=== PATIENT | female | born 1980 | race African-American/Black ===

== ENCOUNTER 2021-07-01 07:07 | Inpatient (IN) ==
[2021-07-01] MEDS ORDERED: LABETALOL 20 MG/4 ML SYRINGE IV PRN (07:47)
[2021-07-01] MEDS ORDERED: LABETALOL 100 MG/20 ML VIAL IV PRN ×2 (07:47)
[2021-07-01] MEDS ORDERED: MAGNESIUM SULF RIDER 4 GM/100 ML PREMIX IV ONE (07:47)
[2021-07-01] MEDS ORDERED: miSOPROStoL 200 MCG TABLET RECTAL PRN (07:48)
[2021-07-01] MEDS ORDERED: METHYLERGONOVINE 0.2 MG/1 ML AMP IM PRN (07:48)
[2021-07-01] MEDS ORDERED: ONDANSETRON 4 MG/2 ML VIAL IV PRN ×2 (07:48→20:50)
[2021-07-01] MEDS ORDERED: CARBOPROST TROMETHAMINE 250 MCG/ML AMP IM PRN (07:48)
[2021-07-01] MEDS ORDERED: OXYTOCIN/LR 20 UNIT/1,000 ML BAG IV ONE ×2 (07:48→20:50)
[2021-07-01] MEDS ORDERED: TRANEXAMIC ACID 1,000 MG in SODIUM CHLORIDE 0.9% 100 ML IV PRN (07:48)
[2021-07-01] MEDS ORDERED: MAGNESIUM SULF DRIP 40 GM/1,000 ML ML IV SCH (08:00)
[2021-07-01 08:09] LABS: Basophils % 0.4 % (0.0-0.8); Eosinophils % 0.6 % (0.00-10.9); Hematocrit 29.6 VOL% (35.7-47.0); Immature Granulocytes % 0.6 %; Immature Granulocytes Absolute 0.04 #; Lymphocytes # 1.3 10*3/uL (1.4-4.0); Lymphocytes % 19.9 % (21.3-54.2); Mean Corpuscular HGB Conc 30.4 GM/DL (32-36); Mean Corpuscular Volume 75.9 FL (87-102); Monocytes # 0.4 10*3/uL (0.11-0.8); Monocytes % 5.8 % (1.7-12.7); Neutrophils % 72.7 % (38.7-73.9); Platelet Count 156 T/CUMM (130-400); Red Cell Distribution Width 15.9 % (9.3-17.3); White Blood Count 6.8 T/CUMM (4-12)
[2021-07-01 08:14] LABS: Bilirubin,Urine Negative (Negative); Blood, Urine Trace mg/dL (Negative); Glucose,Urine (UA) Negative (Negative); Ketones,Urine Negative (Negative); Mucus,Urine Occasional /LPF (Occasional); Nitrite,Urine Negative (Negative); Protein,Urine Negative (Negative); RBC,Urine 1 /HPF (0-4); Squamous Epithelial Cell,Urine Occasional /HPF (0-10); Urine Appearance Clear (Clear); Urine Color Yellow (Yellow); Urine Specific Gravity 1.015 (1.001-1.035); Urine Urobilinogen 0.2 eU/dL (<2.0)
[2021-07-01] MEDS: LACTATED RINGERS 1,000 ML IV SCH ×2 (08:18→18:56)
[2021-07-01 08:21] LABS: INR 0.9; PT Patient Result 9.6 SECS (10.5-12.0); Partial Thromboplastin Time 25.6 SECS (23.8-32.1)
[2021-07-01 08:24] LABS: Barbiturates Screen,Urine Negative (Negative); Benzodiazepines Screen,Urine Negative (Negative); Cannabinoid Screen,Urine Negative (Negative); Opiate Screen,Urine Negative (Negative); Phencyclidine Screen,Urine Negative (Negative)
[2021-07-01 08:27] LABS: Protein/Creatinine Ratio,Urine 0.4 RATIO
[2021-07-01 08:32] LABS: Alanine Aminotransferase 10 U/L (13-56); Albumin 2.4 G/DL (3.4-5.0); Alkaline Phosphatase 152 U/L (45-117); Aspartate Amino Transferase 11 U/L (0-37); Bilirubin,Total < 0.39 MG/DL (0.20-1.00); Blood Urea Nitrogen 6 MG/DL (7-18); Carbon Dioxide 24 MMOL/L (21-32); Chloride 109 MMOL/L (98-107); Estimated Glom Filtration Rate 167 ML/MIN; Glucose 87 MG/DL (74-106); Osmolality,Calculated 269.8 MOS/KG (273-304); Sodium 137 MMOL/L (136-145); Total Protein 6.9 G/DL (6.4-8.2)
[2021-07-01] MEDS ORDERED: BUTORPHANOL 2 MG/ML VIAL ONE (12:06)
[2021-07-01] MEDS ORDERED: BUTORPHANOL 2 MG/ML VIAL IV PRN (12:08)
[2021-07-01] MEDS ORDERED: OXYTOCIN/D5LR 20 UNIT/1,000 ML PREMIX IV SCH (12:30)
[2021-07-01] MEDS ORDERED: AMPICILLIN INJ 2,000 MG in SODIUM CHLORIDE 0.9% 100 ML IV ONE (13:21)
[2021-07-01] MEDS ORDERED: PROMETHAZINE 25 MG/1 ML VIAL IM ONE (13:23)
[2021-07-01] MEDS ORDERED: diphenhydrAMINE 50 MG/1 ML VIAL IV PRN ×2 (13:23)
[2021-07-01] MEDS ORDERED: ePHEDrine 50 MG/ML VIAL IV PRN (13:23)
[2021-07-01] MEDS ORDERED: ONDANSETRON 4 MG/2 ML VIAL IV ONE (13:23)
[2021-07-01] MEDS ORDERED: hydrOXYzine HCL 25 MG/1 ML VIAL IM PRN (13:23)
[2021-07-01] MEDS ORDERED: NALOXONE 0.4 MG/ML VIAL IV PRN (13:23)
[2021-07-01] MEDS ORDERED: CITRIC ACID/SODIUM CITRATE 30 ML UDCUP PO ONE (13:29)
[2021-07-01] MEDS ORDERED: FAMOTIDINE 20 MG/2 ML VIAL IV ONE (13:29)
[2021-07-01] MEDS ORDERED: fentaNYL 2 MCG/ROPIV 0.2% EPID 100 ML EPIDURAL SCH (13:30)
[2021-07-01] MEDS: MEPERIDINE 50 MG/1 ML VIAL IV SCH (16:26)
[2021-07-01] MEDS ORDERED: MEPERIDINE 50 MG/1 ML VIAL IM ONE (17:30)
[2021-07-01] MEDS: AMPICILLIN INJ 1,000 MG in SODIUM CHLORIDE 0.9% 100 ML IV SCH ×2 (17:46→17:49)
[2021-07-01] MEDS ORDERED: ceFAZolin 2,000 MG/50 ML DUPLEX IV ONE (18:30)
[2021-07-01] MEDS ORDERED: propofoL 200 MG/20 ML VIAL IV ONE (18:59)
[2021-07-01] MEDS ORDERED: SUCCINYLCHOLINE 200 MG/10 ML VIAL ONE (18:59)
[2021-07-01] MEDS ORDERED: LIDOCAINE 2% 5 ML VIAL ONE (18:59)
[2021-07-01] MEDS ORDERED: KETOROLAC 30 MG/1 ML VIAL ONE (19:31)
[2021-07-01] MEDS ORDERED: ACETAMINOPHEN INJ 1,000 MG/100 ML VIAL IV ONE (19:31)
[2021-07-01] MEDS ORDERED: MIDAZOLAM 2 MG/2 ML VIAL ONE (19:37)
[2021-07-01] MEDS ORDERED: fentaNYL 100 MCG/2 ML VIAL ONE (19:37)
[2021-07-01] MEDS ORDERED: OXYTOCIN 10 UNIT/ML VIAL ONE (19:41)
[2021-07-01] MEDS ORDERED: ONDANSETRON 4 MG/2 ML VIAL ONE (19:50)
[2021-07-01 20:07] LABS: Cord Arterial Blood HCO3 21.4 MMOL/L
[2021-07-01 20:08] LABS: Cord Venous Blood HCO3 22.4 MMOL/L; Cord Venous Blood PCO2 52.6 MMHG; Cord Venous Blood PO2 51.2
[2021-07-01 20:20] LABS: Mucus,Urine Occasional /LPF (Occasional); RBC,Urine <1 /HPF (0-4)
[2021-07-01 20:21] LABS: Glucose,Urine (UA) Negative (Negative); Ketones,Urine Negative (Negative); Protein,Urine Negative (Negative); Urine Appearance Clear (Clear); Urine Color Yellow (Yellow); Urine Specific Gravity >= 1.030 (1.001-1.035); Urine pH 6.5 (4.5-8.0)
[2021-07-01 20:22] LABS: Bilirubin,Urine Negative (Negative); Blood, Urine Negative (Negative); Nitrite,Urine Negative (Negative); Urine Urobilinogen 0.2 eU/dL (<2.0)
[2021-07-01] MEDS ORDERED: PHENYLEPHRINE 1 MG/10 ML SYRINGE IV ONE (20:44)
[2021-07-01] MEDS ORDERED: SODIUM CHLORIDE 0.9% 1,000 ML IV PRN (20:46)
[2021-07-01] MEDS ORDERED: MAGNESIUM HYDROXIDE SUSP 30 ML UDCUP PO PRN (20:50)
[2021-07-01] MEDS ORDERED: SIMETHICONE CHEW 80 MG TABLET PO PRN (20:50)
[2021-07-01] MEDS ORDERED: ACETAMINOPHEN 325 MG TABLET PO PRN (20:50)
[2021-07-01] MEDS ORDERED: RHO(D) IMMUNE GLOBULIN 300 MCG SYRINGE IM ONE (20:50)
[2021-07-01] MEDS ORDERED: LACTATED RINGERS 1,000 ML IV SCH (21:00)
[2021-07-01 21:13] LABS: Basophils % 0.2 % (0.0-0.8); Hematocrit 22.8 VOL% (35.7-47.0); Immature Granulocytes % 0.6 %; Immature Granulocytes Absolute 0.08 #; Lymphocytes # 0.7 10*3/uL (1.4-4.0); Lymphocytes % 4.9 % (21.3-54.2); Mean Corpuscular HGB Conc 30.7 GM/DL (32-36); Mean Corpuscular Volume 76.5 FL (87-102); Monocytes # 0.6 10*3/uL (0.11-0.8); Monocytes % 4.1 % (1.7-12.7); Neutrophils % 90.2 % (38.7-73.9); Platelet Count 148 T/CUMM (130-400); Red Blood Count 2.98 MC/CUMM (3.8-5.5); Red Cell Distribution Width 15.8 % (9.3-17.3); White Blood Count 13.8 T/CUMM (4-12)
[2021-07-01 21:37] LABS: Lymphocytes 5 % (20-55); Total Cells Counted 100
[2021-07-01 21:38] LABS: Anisocytosis Slight; Hypochromia 1+; Macrocytosis Slight; Microcytosis Slight; Platelet Estimate Adequate
[2021-07-02] MEDS: KETOROLAC 30 MG/1 ML VIAL IV SCH ×2 (02:23→07:50)
[2021-07-02] MEDS: DOCUSATE SODIUM 100 MG CAPSULE PO SCH ×4 (05:08→20:38)
[2021-07-02] MEDS: MEPERIDINE 50 MG/1 ML VIAL IV SCH (05:10)
[2021-07-02 06:15] LABS: Basophils % 0.1 % (0.0-0.8); Hematocrit 23.6 VOL% (35.7-47.0); Hemoglobin 7.5 GM/DL (12.0-16.0); Immature Granulocytes % 0.5 %; Immature Granulocytes Absolute 0.08 #; Lymphocytes % 6.5 % (21.3-54.2); Mean Corpuscular HGB Conc 31.8 GM/DL (32-36); Mean Corpuscular Volume 79.7 FL (87-102); Monocytes # 0.7 10*3/uL (0.11-0.8); Neutrophils % 87.9 % (38.7-73.9); Platelet Count 151 T/CUMM (130-400); Red Blood Count 2.96 MC/CUMM (3.8-5.5); Red Cell Distribution Width 16.6 % (9.3-17.3); White Blood Count 14.8 T/CUMM (4-12)
[2021-07-02 06:33] LABS: Hypochromia 1+; Microcytosis 1+; Ovalocytes Few
[2021-07-02] MEDS: MULTIVITAMIN (PRENATAL) TABLET PO SCH ×2 (07:50→09:52)
[2021-07-02] MEDS: FERROUS SULFATE 325 MG TABLET PO SCH ×2 (07:50→20:38)
[2021-07-02] MEDS: FUROSEMIDE 40 MG/4 ML VIAL IV SCH ×2 (09:31→12:00)
[2021-07-02] MEDS ORDERED: MEPERIDINE 50 MG/1 ML VIAL IV PRN (09:53)
[2021-07-02] MEDS ORDERED: LORazepam 2 MG/1 ML VIAL ONE (10:16)
[2021-07-02] MEDS: LORazepam 2 MG/1 ML VIAL IV PRN (10:18)
[2021-07-02 12:40] LABS: Basophils % 0.2 % (0.0-0.8); Hematocrit 18.6 VOL% (35.7-47.0); Immature Granulocytes % 0.6 %; Immature Granulocytes Absolute 0.08 #; Lymphocytes # 1.1 10*3/uL (1.4-4.0); Lymphocytes % 8.5 % (21.3-54.2); Mean Corpuscular HGB Conc 33.3 GM/DL (32-36); Mean Corpuscular Volume 78.2 FL (87-102); Monocytes # 0.6 10*3/uL (0.11-0.8); Monocytes % 4.7 % (1.7-12.7); Platelet Count 125 T/CUMM (130-400); Red Blood Count 2.38 MC/CUMM (3.8-5.5); Red Cell Distribution Width 16.5 % (9.3-17.3); White Blood Count 13.2 T/CUMM (4-12)
[2021-07-02 12:47] LABS: Hemoglobin 6.2 GM/DL (12.0-16.0)
[2021-07-02 13:02] LABS: Platelet Estimate Decreased
[2021-07-02] MEDS ORDERED: FUROSEMIDE 40 MG/4 ML VIAL IV ONE (13:51)
[2021-07-02] MEDS: IBUPROFEN 800 MG TABLET PO PRN (20:39)
[2021-07-02 21:28] LABS: Hematocrit 23.8 VOL% (35.7-47.0); Hemoglobin 7.8 GM/DL (12.0-16.0)
[2021-07-03] MEDS: LORazepam 2 MG/1 ML VIAL IV PRN (04:18)
[2021-07-03 08:13] LABS: Basophils % 0.2 % (0.0-0.8); Eosinophils % 0.2 % (0.00-10.9); Hemoglobin 6.9 GM/DL (12.0-16.0); Immature Granulocytes % 0.8 %; Lymphocytes # 1.7 10*3/uL (1.4-4.0); Lymphocytes % 12.7 % (21.3-54.2); Mean Corpuscular HGB Conc 32.9 GM/DL (32-36); Mean Corpuscular Volume 78.9 FL (87-102); Mean Platelet Volume 12.9 FL (9.6-12.0); Monocytes # 0.6 10*3/uL (0.11-0.8); Monocytes % 4.8 % (1.7-12.7); Neutrophils % 81.3 % (38.7-73.9); Platelet Count 154 T/CUMM (130-400); Red Blood Count 2.66 MC/CUMM (3.8-5.5); White Blood Count 13.3 T/CUMM (4-12)
[2021-07-03] MEDS ORDERED: SODIUM CHLORIDE 0.9% 1,000 ML IV PRN ×2 (09:02→12:47)
[2021-07-03] MEDS: MULTIVITAMIN (PRENATAL) TABLET PO SCH (09:46)
[2021-07-03] MEDS: FERROUS SULFATE 325 MG TABLET PO SCH ×2 (09:49→20:32)
[2021-07-03] MEDS: DOCUSATE SODIUM 100 MG CAPSULE PO SCH ×2 (09:49→20:34)
[2021-07-03] MEDS: IBUPROFEN 800 MG TABLET PO PRN (20:36)
[2021-07-04] MEDS: LORazepam 2 MG/1 ML VIAL IV PRN (01:39)
[2021-07-04 06:19] LABS: Basophils % 0.3 % (0.0-0.8); Eosinophils # 0.1 10*3/uL (0.0-0.87); Eosinophils % 0.7 % (0.00-10.9); Hematocrit 24.9 VOL% (35.7-47.0); Hemoglobin 8.2 GM/DL (12.0-16.0); Immature Granulocytes % 0.4 %; Immature Granulocytes Absolute 0.04 #; Lymphocytes % 19.4 % (21.3-54.2); Mean Corpuscular HGB Conc 32.9 GM/DL (32-36); Mean Corpuscular Volume 79.8 FL (87-102); Mean Platelet Volume 11.1 FL (9.6-12.0); Monocytes # 0.5 10*3/uL (0.11-0.8); Monocytes % 4.9 % (1.7-12.7); Neutrophils % 74.3 % (38.7-73.9); Platelet Count 154 T/CUMM (130-400); Red Blood Count 3.12 MC/CUMM (3.8-5.5); Red Cell Distribution Width 15.9 % (9.3-17.3); White Blood Count 10.2 T/CUMM (4-12)
[2021-07-04 06:45] LABS: Hypochromia Slight; Microcytosis 1+; Platelet Estimate Normal
[2021-07-04] MEDS: FERROUS SULFATE 325 MG TABLET PO SCH (09:31)
[2021-07-04] MEDS: MULTIVITAMIN (PRENATAL) TABLET PO SCH (09:31)
[2021-07-04] MEDS: DOCUSATE SODIUM 100 MG CAPSULE PO SCH (09:36)
[2021-07-04 12:31] VITALS: BP 132/74
== END 2021-07-04 13:45 | disposition home or self-care (01) | DRG 540 ==
LOC: N.LD 07:07 → N.OB 07-02 01:53
PROVIDERS: ADMIT Obstetrics & Gynecology; ATTEND Obstetrics & Gynecology
PROC: LDCSECT (ICD-10-PCS; 2021-07-01 18:20)